=== PATIENT | female | born 1935 | race Caucasian/White ===

== ENCOUNTER → 2018-11-09 | Outpatient (CLI) | payer OTHER ==
--- NOTE | 2018-11-09 13:47 | PCVCIMAG ---
EXAM: BILATERAL LOWER EXTREMITY ARTERIAL DUPLEX INDICATION: Peripheral Arterial Disease. Leg pain. Nonhealing ulcer anterior left lower leg. FINDINGS: Right Leg: Satisfactory arterial waveforms throughout the common/profunda/superficial femoral, popliteal, anterior tibial, peroneal, and posterior tibial arteries. No flow limiting stenosis seen. Left Leg: Common femoral and profunda femoral arteries are patent. Superficial femoral artery and popliteal arteries are patent. The anterior tibial and posterior tibial arteries are patent. There is reversed flow in the distal most peroneal artery which could indicate a more proximal peroneal stenosis although this is not definitely identified. IMPRESSION: No flow limiting stenosis in the right lower extremity. Question of significant mid left peroneal artery stenosis. Otherwise no flow limiting stenosis in the left lower extremity. LOC:[place] [id number]
== END | disposition home or self-care (01) ==
LOC: PCVCIMAG 12:42
PROVIDERS: ATTEND Emergency Medicine
DX: I73.9 Peripheral vascular disease, unspecified (principal); L97.929 Non-pressure chronic ulcer of unspecified part of left lower leg with unspecified severity; T81.89XS Other complications of procedures, not elsewhere classified, sequela; X58.XXXS Exposure to other specified factors, sequela
CPT/HCPCS: 93925